=== PATIENT | female | born 1980 | race Caucasian/White ===

== ENCOUNTER → 2017-03-23 | Outpatient (CLI) | payer BC ==
[~2017-03-23] MED LIST: ENDOCET 5-3251 EACH PO; IBUPROFEN800 MG PO; LEVOTHYROXINE100 MCG PO; PREDNISONE20 MG PO; PRENATAL TABLE1 EAC3 PO
== END | disposition home or self-care (01) ==
DX: K21.9 Gastro-esophageal reflux disease without esophagitis (principal)
CPT/HCPCS: 92611 GN

== ENCOUNTER 2017-06-27 09:50 | Observation (INO) | payer OTHER ==
[~2017-06-27] VITALS: Ht 162.6 cm; Wt 66.1 kg
[2017-06-27 10:15] LABS: APPEARANCE SL.HAZY ((CLEAR)); BILIRUBIN NEGATIVE; BLOOD SMALL; COLOR YELLOW ((YELLOW)); GLUCOSE (STRIP) NEGATIVE; KETONES 5; LEUKOCYTES TRACE; NITRITE NEGATIVE; PROTEIN (STRIP) 30; SPECIFIC GRAVITY 1.027 (1.000-1.030); UROBILINOGEN 0.2 MG/DL (0.2-1.0)
[2017-06-27 10:31] LABS: BACTERIA RARE /HPF; EPITHELIAL CELLS 2+ /HPF; MUCUS TRACE /LPF; RED BLOOD CELLS 0-5 /HPF (0-5); WHITE BLOOD CELLS 0-5 /HPF (0-5)
[2017-06-27 10:38] LABS: HEMOGLOBIN 12.8 G/DL (11.9-15.5); MCHC 35.6 G/DL (30.0-36.0); MCV 84.5 FL (83-99); PLATELET COUNT 108 K/uL (156-360); RBC DIS.WIDTH-SD 37.2 % (39-53); RED BLOOD COUNT 4.26 M/uL (3.80-5.20); WHITE BLOOD COUNT 7.2 K/uL (4.1-10.2)
[2017-06-27 10:45] LABS: ALBUMIN 4.3 g/dL (3.2-4.8)
[2017-06-27 10:46] LABS: CHLORIDE 105 mEq/L (99-109); POTASSIUM 3.8 mEq/L (3.7-5.4); SODIUM 138 mEq/L (136-147)
[2017-06-27 10:48] LABS: GLUCOSE 102 mg/dL (70-99); TOTAL PROTEIN 7.2 g/dL (6.4-8.3)
[2017-06-27 10:50] LABS: TOTAL BILIRUBIN 1.1 mg/dL (0.0-1.0)
[2017-06-27 10:51] LABS: ALKALINE PHOSPHATASE 46 IU/L (3-129)
[2017-06-27 10:52] LABS: CREATININE 0.8 mg/dL (0.6-1.3); GFR ESTIMATE (CALCULATED) > 59 mL/min/
[2017-06-27 10:53] LABS: AST (GOT) 17 IU/L (2-34); UREA NITROGEN (BUN) 13 mg/dL (9-23)
[2017-06-27 10:54] LABS: ALT (GPT) 11 IU/L (3-49)
[2017-06-27 11:00] LABS: QUANTITATIVE HCG < 4.0 MIU/ML
[2017-06-27 16:58] VITALS: BP 100/57
[2017-06-27 19:25] VITALS: BP 100/58
[2017-06-27 23:39] VITALS: BP 100/50
[2017-06-28 04:03] VITALS: BP 92/55
[2017-06-28 06:06] LABS: HEMATOCRIT 31.1 % (36.0-46.0); HEMOGLOBIN 10.4 G/DL (11.9-15.5); MCH 28.9 PG (29.0-34.0); MCHC 33.4 G/DL (30.0-36.0); MCV 86.4 FL (83-99); PLATELET COUNT 107 K/uL (156-360); RBC DIS.WIDTH-CV 12.1 % (11.8-14.6); RBC DIS.WIDTH-SD 38.9 % (39-53); WHITE BLOOD COUNT 7.4 K/uL (4.1-10.2)
[2017-06-28 06:22] LABS: CHLORIDE 109 MEQ/L (99-109); CREATININE 0.7 MG/DL (0.6-1.3); GFR ESTIMATE (CALCULATED) > 59 mL/min/; GLUCOSE 139 mg/dL (70-99); POTASSIUM 3.9 MEQ/L (3.7-5.4); SODIUM 140 MEQ/L (136-147); UREA NITROGEN (BUN) 6 mg/dL (9-23)
[2017-06-28 08:20] VITALS: BP 102/57
[2017-06-28] MEDS ORDERED: ENDOCET 5-3251 EACH PO (09:32)
[2017-06-28] MEDS ORDERED: COLACE100 MG PO (09:32)
[2017-06-28 11:12] VITALS: BP 104/56
[2017-06-28 15:53] VITALS: BP 105/68
== END 2017-06-28 18:01 | disposition home or self-care (01) ==
LOC: EME 09:50 → 2EAST 13:11 → EDOF 13:11 → ENRESERV 13:13 → EDOF 13:20 → ENRESERV 13:27 → EDOF 13:47 → ENRESERV 16:05 → 2EAST 16:38
PROVIDERS: Family Medicine; Surgery
PROC: 0DTJ4ZZ Resection of Appendix, Percutaneous Endoscopic Approach (ICD-10-PCS; principal; 2017-06-27)
DX: K35.80 Unspecified acute appendicitis (principal); D69.6 Thrombocytopenia, unspecified; E03.9 Hypothyroidism, unspecified; Z83.3 Family history of diabetes mellitus
CPT/HCPCS: 74177; 80048; 80053; 81003; 84702; 85027; 88304; 99281; 99284; G0378; J0131; J0330; J1100; J1170; J1650; J2250; J2270; J2405; J2543; J2710; J2765; J3480; J7040; J7050; S0020; S0074